=== PATIENT | female | born 1965 | race Two or more races ===

== ENCOUNTER 2021-07-21 12:46 | Outpatient (REF) | payer MEDICARE, SELFPAY | END 2021-07-21 12:47 | disposition home or self-care (01) | LOC: HO.LAB 12:46 | PROVIDERS: Visit Provider Internal Medicine | DX: Z20.822 Contact with and (suspected) exposure to COVID-19 (principal) | CPT/HCPCS: C9803; U0003; U0005 ==

== ENCOUNTER 2025-03-07 10:36 | Outpatient (REF) | payer MEDICARE, SELFPAY ==
--- NOTE | 2025-03-07 10:41 | EMG_ITS ---
Chief complaint: Bilateral hand numbness and pain Reason for referral: Evaluate for Carpal Tunnel Syndrome or ulnar neuropathy Referred by: Félix BROOKS Procedure done: Bilateral upper extremities NCS/EMG Precautions and/or limitations: None The limb temperature was monitored continuously and remained between 32-36 degrees C during the performance of the NCS. Nerve Conduction Studies Anti Sensory Summary Table ?Stim Site NR Onset (ms) Norm Onset (ms) Peak (ms) Norm Peak (ms) O-P Amp (?V) Norm O-P Amp Site1 Site2 Delta-0 (ms) Dist (cm) [place] (m/s) Norm [place] (m/s) Left Median Anti Sensory (2nd Digit) Wrist ? 5.6 6.2 <3.6 3.0 >10 Wrist 2nd Digit 5.6 14.0 25 Right Median Anti Sensory (2nd Digit) Wrist NR <3.6 >10 Wrist 2nd Digit 14.0 Right Radial Anti Sensory (Thumb) Forearm ? 1.8 2.4 <3.1 12.1 Forearm Thumb 1.8 0.0 Left Ulnar Anti Sensory (5th Digit) Wrist ? 1.5 3.5 <3.7 20.4 >15.0 Wrist 5th Digit 1.5 14.0 93 Right Ulnar Anti Sensory (5th Digit) Wrist ? 0.8 3.4 <3.7 16.8 >15.0 Wrist 5th Digit 0.8 14.0 175 Motor Summary Table ?Stim Site NR Onset (ms) Norm Onset (ms) O-P Amp (mV) Norm O-P Amp iAmp (mV) Amp (1st) (%) Site1 Site2 Delta-0 (ms) Dist (cm) [place] (m/s) Norm [place] (m/s) Left Median Motor (Abd Poll Brev) Wrist ? 6.3 <3.9 6.6 >4.5 8.1 100.0 Elbow Wrist 4.1 19.5 48 >45 Elbow ? 10.4 4.9 6.2 74.2 Right Median Motor (Abd Poll Brev) Wrist ? 7.9 <3.9 6.9 >4.5 8.9 100.0 Elbow Wrist 2.8 21.0 75 >45 Elbow ? 10.7 5.9 8.3 85.5 Left Ulnar Motor (Abd Dig Minimi) Wrist ? 3.0 <3.0 6.2 >5 7.7 100.0 B Elbow Wrist 3.4 18.0 53 >45 B Elbow ? 6.4 6.3 7.9 101.6 A Elbow B Elbow 1.7 10.0 59 >45 A Elbow ? 8.1 6.3 8.0 101.6 Right Ulnar Motor (Abd Dig Minimi) Wrist ? 2.7 <3.0 8.4 >5 9.5 100.0 B Elbow Wrist 3.9 19.0 49 >45 B Elbow ? 6.6 8.6 9.7 102.4 A Elbow B Elbow 1.5 10.0 67 >45 A Elbow ? 8.1 8.6 9.7 102.4 EMG ?Side Muscle Nerve Root Ins Act Fibs Psw Amp Dur Poly Recrt Int Pat Comment Right 1stDorInt Ulnar C8-T1 Nml Nml Nml Nml Nml 0 Nml Complete Right FlexCarpiUln Ulnar C8,T1 Nml Nml Nml Nml Nml 0 Nml Complete Right Biceps Musculocut C5-6 Nml Nml Nml Nml Nml 0 Nml Complete Right Triceps Radial C6-7-8 Nml Nml Nml Nml Nml 0 Nml Complete Right Deltoid Axillary C5-6 Nml Nml Nml Nml Nml 0 Nml Complete Left 1stDorInt Ulnar C8-T1 Nml Nml Nml Nml Nml 0 Nml Complete Left FlexCarpiUln Ulnar C8,T1 Nml Nml Nml Nml Nml 0 Nml Complete Left Biceps Musculocut C5-6 Nml Nml Nml Nml Nml 0 Nml Complete Left Triceps Radial C6-7-8 Nml Nml Nml Nml Nml 0 Nml Complete Left Deltoid Axillary C5-6 Nml Nml Nml Nml Nml 0 Nml Complete FINDINGS: Bilateral median motor nerves showed prolonged distal latency, normal amplitude and normal conduction velocity. Right median sensory nerve showed absent response. Left median sensory nerve showed prolonged peak latency and small amplitude. All other nerves tested were within normal. Concentric needle EMG was performed in selected muscles of the bilateral upper extremities. Study did not reveal signs of electric abnormalities as shown in the table above. IMPRESSION: 1. This is an abnormal study. 2. There is electrodiagnostic evidence for bilateral moderate-severe median neuropathy at the wrist, consistent with carpal tunnel syndrome. 3. There is no electrodiagnostic evidence for ulnar neuropathy, brachial plexopathy, or cervical radiculopathy. Thank you for your kind referral. Zuleima Devries MD, CAROLEE Board Certified, [place] [employer] and [employer] (ABPMR) Board Certified, [place] [employer] Electro[employer]ostic [employer] (ABEM) CODIN [phone] MTDD
--- OUTSIDE RECORDS SUMMARY | 2025-03-07 11:25 | XMS_ITS | Patient Health Record ---
[facility] Organization [facility] Address [address] [place] [address] Care Team Providers Care Table Games Dealer Name Role Phone MEHDI PARKER Unavailable [phone] Allergies Allergen (clinical drug ingredient) Drug/Non Drug Allergy documented on EMR Reaction Allergy Type Onset Date Status albuterol albuterol (uncoded) Unknown Allergy Active amoxicillin / clavulanate augmentin (uncoded) Unknown Allergy Active bee sting (uncoded) Unknown Allergy Active influenza (uncoded) Unknown Allergy Active Substance with 2-hazuybz-9-methylgluta ryl-coenzyme A reductase inhibitor mechanism of action (substance) statin (uncoded) Unknown Allergy Active Reason For Referral No Information Medications Medication SIG (Take, Route, Frequency, Duration) Notes Start Date End Date Status Fish Oil 1000 MG 1 capsule Orally Once a day Active Breo Ellipta 100-25 MCG/INH 1 puff Inhalation Once a day; Duration: 30 days 07/10/2020 Active Alpha Lipoic Acid 300mg x2 daily Active Cymbalta 60 MG 1 capsule Orally Once a day; Duration: 90 days Active Magnesium 500 MG 4 tablets with a meal Orally Once a day Active Levothyroxine Sodium 100 MCG 1 tablet in the morning on an empty stomach Orally Once a day; Duration: 30 day(s) 06/14/2020 Active Super B Complex Acti ve Levalbuterol HCl 0.63 MG/3ML 3 ml Inhalation every 8 hrs; Duration: 30 days Active Cymbalta 30 MG 1 capsule Orally in the evening; Duration: 90 days 06/23/2021 Active Probiotic Active Calcium 1000 + D 1000-800 MG-UNIT 1 tablet with a meal Orally Once a day Active EpiPen 2-Leonides 0.3 MG/0.3ML as directed Injection prn; Duration: 30 days Active Vitamin B12 2500mcg sublingual daily Active Xopenex HFA 45 MCG/ACT 1 puff as needed Inhalation every 4 hrs; Duration: 30 days Active Trulicity 1.5 MG/0.5ML as directed Subcutaneous weekly; Duration: 30 days 12/31/2020 Active dilTIAZem HCl 120 MG once Orally daily; Duration: 90 days Active Lisinopril 5 MG 1 tablet Orally Once a day; Duration: 90 days Active Loratadine 10 MG 1 tablet Orally Once a day Active FreeStyle Lite Test - USE ONCE DAILY; Duration: 30 days Active Sunosi 150 MG 1 tablet in the morning Orally Once a day Active SUMAtriptan Succinate 25 MG 1 tablet at least 2 hours between doses as needed Orally Twice a day; Duration: 30 days 08/22/2020 Active Vitamin D3 125 MCG (5000 UT) 1 tablet Orally Once a day Active Flonase Allergy Relief 50 MCG/ACT 1 spray in each nostril Nasally Once a day Active Cymbalta 30 MG 1 capsule Orally Once a day; Duration: 30 day(s) 12/31/2020 Active Social History Tobacco Use: Social History Observation Description Date Details (start date - stop date) Never Smoker NA - NA Tobacco Use/Smoking Question Answer Notes 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 Problems Problem Type SNOMED Code ICD Code Onset Dates Problem Status W/U Status Risk Notes Problem Type II diabetes mellitus without complication (403369052) Type 2 diabetes mellitus without complications (E11.9) Active confirmed Problem Obesity (961044484) Obesity, uns pecified (E66.9) Active confirmed Problem Refractory migraine with aura (331734786) Migraine with aura, intractable, without status migrainosus (G43.119) Active confirmed Problem Neuropathy (462120389) Neuropathy (G62.9) Active confirmed Problem Hyperlipoproteinemia (2732245) Acquired hyperlipoproteinemia (E78.5) Active confirmed Problem Hypothyroidism (37571281) Hypothyroidism, unspecified type (E03.9) Active confirmed Problem Vitamin D deficiency (79938919) Vitamin D deficiency (E55.9) Active confirmed Problem Body mass index 30+ - obesity (342908061) Body mass index [BMI]30.0-30.9, adult (Z68.30) Active confirmed Plan Of Treatment Pending Test Test Name Order Date Hemoglobin A1c 06/14/2020 Hemoglobin A1c 04/19/2020 Insulin, Fasting 04/19/2020 TSH+Free T4 06/14/2020 TSH+Free T4 04/19/2020 Lipid Panel 04/19/2020 Comp. Metabolic Panel (14) 04/19/2020 CBC 04/19/2020 25OH VITAMIN D 04/19/2020 HEMOGLOBIN A1C 12/31/2020 HEMOGLOBIN A1C 09/30/2020 T3, FREE 09/30/2020 T4, FREE 09/30/2020 TSH 09/30/2020 TSH 12/31/2020 LIPID PANEL, STANDARD 07/15/2021 COMPREHENSIVE METABOLIC PANEL 07/15/2021 CBC (INCLUDES DIFF/PLT) 07/15/2021 HEMOGLOBIN A1c 07/15/2021 VITAMIN D,25-OH,TOTAL,IA 07/15/2021 Medical (General) History Medical History History ICD Code benign positional vertigo Surgical History Surgery Date(Month/Year) rectocele repair gallbladder inguinal hernia
--- OUTSIDE RECORDS SUMMARY | 2025-03-07 11:25 | XMS_ITS | Clinical Summary ---
Author Organization [address] [facility] Address [address] [place] [phone] Phone Care Team Providers Care Home Care Administrator Name Role Phone Arash Alba MD Primary Care Provider [phone] Allergies Active Allergy Reactions Criticality Noted Date Comments Amoxicillin-Pot Clavulanate Dizziness,Nausea And Vomiting 10/06/2021 Other Reaction(s): dizziness, vomiting, diarrhea Bee Venom Protein (Honey Bee) 10/06/2021 Covid-19 Vaccine, [id number], Lnp-S (Moderna) Other 10/06/2021 Asthma attack Diltiazem Unknown 10/18/2023 Pt states eruption of lichen planus Ezetimibe Other 10/18/2023 Pt states eruption of lichen planus Influenza Virus Vaccines Unknown 11/30/2023 full systemic reaction - full body joint inflammation per pt Lisinopril Unknown 10/18/2023 Pt states eruption of lichen planus Simvastatin Neuropathy 10/06/2021 Other Reaction(s): ALL STATINS - pain in kidney area, memory lapse Neuropathy Neuropathy Patient states reaction to all STATIN medications Patient states reaction to all STATIN medications Tetracycline Dizziness 10/06/2021 Other Reaction(s): dizziness, vomiting, diarrhea Medications thyroid, pork, (ARMOUR THYROID) 30 mg tablet Take 3 tablets (90 mg total) by mouth 1 (one) time each day. 12/23/19 24 Active dexAMETHasone 0.1 mg/mL solution TAKE 2.5 ML BY MOUTH TWICE A DAY , SWISH AND SPIT OUT. DO NOT SWALLOW. 10/11/19 24 Active clobetasoL (TEMOVATE) 0.05 % topical solution APPLY TO SCALP TWICE A DAY NEEDED 10/05/19 24 Active miscellaneous medical supply misc CPAP HISTORICAL (HISTORICAL CPAP) Inhale into the lungs. Active loratadine 10 mg capsule Take by mouth. Activ e fluticasone propionate (FLONASE NASL) by Nasal route. Active cholecalciferol (VITAMIN D-3) 125 mcg (5,000 unit) capsule Take by mouth. A ctive coenzyme Q10 400 mg capsule Take by mouth. Acti ve naltrexone (DEPADE) 50 mg tablet Take 4.5 mg by mouth 1 (one) time each day. Active palmitoyl pentapeptide-4,b ulk, gel Active s-adenosylmethio nine sul tosyl (SHAINA-E ORAL) Take by mouth. Ac tive levalbuterol (XOPENEX HFA) 45 mcg/actuation inhaler Inhale 2 puffs by mouth every 4 (four) hours if needed for wheezing. 15 g 1 02/22/20 25 Active SUMAtriptan (IMITREX) 25 mg tablet Take 1 tablet (25 mg total) by mouth 1 (one) time if needed for migraine. 9 tablet 1 02/22/20 25 Active EPINEPHrine (EpiPen 2-Leonides) 0.3 mg/0.3 mL injection Inject 0.3 mL (0.3 mg total) into the thigh if needed for anaphylaxis. 1 each 1 02/22/20 25 Active dulaglutide (Trulicity) 1.5 mg/0.5 mL pen injector injectionIndicat ions:Type 2 diabetes mellitus without complication, without long-term current use of insulin ([facility] V24, [facility] V28) Inject 0.5 mL (1.5 mg total) under the skin 1 (one) time per week. 6 mL 02/22/20 25 Active Sunosi 150 mg tablet Take 150 mg by mouth 1 (one) time each day. Max Daily Amount: 150 mg 09/12/19 25 Active levalbuterol (XOPENEX) 0.63 mg/3 mL nebulizer solutionIndicati ons:Type 2 diabetes mellitus without complication, without long-term current use of insulin ([facility] V24, [facility] V28) TAKE 1 VIAL BY NEBULIZATION EVERY 4 HOURS IF NEEDED FOR WHEEZING. 270 mL 1 02/23/20 25 Active levalbuterol (XOPENEX) 0.63 mg/3 mL nebulizer solutionIndicati ons:Mild intermittent asthma, uncomplicated Take 3 mL by nebulization every 4 (four) hours if needed for wheezing. 72 mL 1 02/23/20 25 Active ammonium lactate (AMLACTIN) 12 % cream Apply topically if needed for dry skin (nightly). 560 g 03/01/20 25 026 Active SUMAtriptan (IMITREX) 25 mg tablet Take 1 tablet (25 mg total) by mouth. 02/01/20 24 025 Discontin ued(Reord er) tacrolimus (PROTOPIC) 0.1 % ointment APPLY TO FACE, ARMS, TRUNK, AND LEGS TWICE A DAY , ALTERNATING WITH TOPICAL STEROIDS 10/14/19 24 025 Discontin ued(Disco ntinued by another clinician ) betamethasone, augmented, (DIPROLENE) 0.05 % ointment APPLY TO TRUNK, ARMS, LEGS TWICE A DAY NEEDED FOR FLARES 10/01/19 24 025 Discontin ued(Disco ntinued by another clinician ) levalbuterol (XOPENEX) 0.63 mg/3 mL nebulizer solution Take 1 Ampule by nebulization every 4 hours as needed for Wheezing, Shortness of Breath or Cough. 05/07/20 23 025 Discontin ued(Reord er) EPINEPHrine (EpiPen 2-Leonides) 0.3 mg/0.3 mL injection Inject 0.3 mg into the muscle as needed for Other (anaphylactic reaction). 2-pack. Fill with whichever brand is covered by insurance. 07/21/20 23 025 Discontin ued(Reord er) levalbuterol (XOPENEX HFA) 45 mcg/actuation inhaler INHALE 1-2 PUFFS INTO THE LUNGS EVERY 4 HOURS NEEDED FOR WHEEZING. 07/27/19 24 025 Discontin ued(Reord er) Trulicity 1.5 mg/0.5 mL pen injector injectionIndicat ions:Type 2 diabetes mellitus without complication, without long-term current use of insulin ([facility] V24, CMS/HCC V28) INJECT 1 PEN SUBCUTANEOUSLY ONE TIME PER WEEK 6 mL 12/07/19 25 025 Discontin ued(Reord er) levalbuterol (XOPENEX) 0.63 mg/3 mL nebulizer solutionIndicati ons:Type 2 diabetes mellitus without complication, without long-term current use of insulin ([facility] V24, [facility] V28) Take 3 mL by nebulization every 4 (four) hours if needed for wheezing. 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 COVID 11/19/2021 Overview (04/19/2024): Covid positive 04/12/23 Allergic rhinitis due to pollen 10/06/2021 Chronic back pain 10/06/2021 History of suicide attempt 10/06/2021 Overview (04/19/2024): 2017, partial hospitalization program Hypothyroidism 10/06/2021 Major depression 10/06/2021 Migraine 10/06/2021 Mild intermittent asthma, uncomplicated 10/07/19 Narcolepsy 10/06/2021 Sleep apnea 10/06/2021 Small fiber neuropathy 10/06/2021 Sphincter of Oddi dysfunction 10/06/2021 Type 2 diabetes mellitus wit hout complications ([facility] V24, [facility] V28) 10/06/2021 Diverticulosis 05/23/2020 Overview (04/19/2024): Mark diverticulosis. Encounters Date Type Department Care Team Description 03/01/2025 1:15 PM EDT Consult Orthopedic Surgery - [address] [phone] Alexandre Rivera, DPM Dermatofibroma of right lower leg (Primary Dx); Type 2 diabetes mellitus without complication, unspecified whether vermin exterminator insulin use ([facility] V24, [facility] V28); Acquired hammer toe of right foot; Hammer toe of left foot; Acquired hallux valgus of left foot; Acquired hallux valgus of right foot 02/21/2025 9:45 AM EDT Office Visit Internal Medicine - [address] [phone] Arash Alba MD Type 2 diabetes mellitus without complication, without long-term current use of insulin ([facility] V24, [facility] V28) (Primary Dx); Migraine without aura and without status migrainosus, not intractable; Recurrent major depressive disorder, in full remission ([facility] V24); Mild intermittent asthma, uncomplicated; Lichen planus; Dysuria 02/05/2025 9:00 AM EDT Consult Orthopedic Surgery - [address] [phone] Félix Xiong PA Carpal tunnel syndrome, right (Primary Dx); Carpal tunnel syndrome of right wrist; Left carpal tunnel syndrome; Cubital tunnel syndrome on right; Acquired trigger finger of left index finger 01/12/2025 9:45 AM EDT Office Visit Internal Medicine - [address] [phone] Michelet Barrios PA Carpal tunnel syndrome of right wrist (Primary Dx) 12/19/2024 Telephone Internal Medicine - [address] [phone] Arash Alba MD Referral (Internal / Podiatry) 12/13/2024 Telephone Pediatrics - [address] [phone] Arash Alba MD Referral (gastroenterology) from Last 3 Months Immunizations Name Administration Dates Next Due Pneumococcal polysaccharide 23 valent (Pneumovax 23) 2yo and older 06/15/2017,01/07/2015 Tdap Tetanus diptheria acell ular pertussis (Boostrix; Adacel) 7yo and older 03/07/2019 Surgical History Surgery Date Site/Laterality Comments HYSTERECTOMY 2017 PROCEDURE: HISTORICAL HYSTERECTOMY; COMMENT: for rectocele, cystocele. Cervix in place OTHER SURGICAL HISTORY 2006 Left PROCEDURE: AR RPR RECRT INGUINAL HERNIA ANY AGE REDUCIBLE COLONOSCOPY 05/23/2020 PROCEDURE: HISTORICAL COLONOSCOPY; COMMENT: Mark BREAST BIOPSY 2003 Right PROCEDURE: BX BREAST; PERC NEEDLE CORE W/IMAG GUID Medical History Medical History Date Comments Narcolepsy DX:Narcolepsy Sleep apnea DX:Sleep apnea Type 2 diabetes mellitus wit hout complications (CMS/HCC V24, CMS/HCC V28) DX:Type 2 diabetes mellitus without complications ([facility]) Hypothyroidism DX:Hypothyroidis m Mild intermittent asthma, uncomplicated DX:Mild intermittent asthma, uncomplicated Sphincter of Oddi dysfunction DX :Sphincter of Oddi dysfunction Migraine DX:Migraine Small fiber neuropathy DX:Small fiber neuropathy Allergic rhinitis due to pollen DX:Allergic rhinitis due to pollen Chronic back pain DX:Chronic edwige k pain Major depression DX:Major depres huang History of suicide attempt DX:Ri story of suicide attempt; COMMENT: 2017, partial hospitalization program Diverticulosis 05/23/2020 DX:Diverticulosi s; COMMENT: Mark, diverticulosis. Family History Medical History Relation Name Comments Colon cancer Aunt 1 Maternal Lymphoma Aunt 2 Maternal Coronary artery disease Father Thyroid disease Father Diabetes Maternal Grandmother Breast cancer Mother Relation Name Status Comments Aunt 1 Maternal Alive Aunt 2 Maternal Alive Father Maternal Grandmother Mother Social History Tobacco Use Types Packs/Day Years Used Date Smoking Tobacco: Never Smokeless Tobacco: Never Tobacco Cessation:Counseling Given: Not Answered Alcohol Use Standard Drinks/Week Comments Never 0 (1 standard drink = 0.6 oz pur e alcohol) Housing Instability Answer Date Recorde d Are you worried that in the next 2 months you may not have stable housing? No 08/18/2024 Food Access & Nutrition Answer Date Rec orded Do you have access to a vari ety of food including fruits and vegetables? Yes 08/18/2024 Access to Healthcare Answer Date Record ed Within the last 3 months, ho w many times did you visit the emergency department for your medical care? 0 08/18/2024 Health Literacy Answer Date Recorded How often do you need to hav e someone help you when you read instructions, pamphlets, or other written material from your doctor or pharmacy? Never 08/18/2024 Caregiver: How often do you need to have someone help you when you read instructions, pamphlets, or other written material from your doctor or pharmacy? Not on file 08/18/2024 Financial Risk Answer Date Recorded How hard is it for you to pa y for the very basics like food, housing, medical care, and air conditioning / heating? Not very hard 08/18/2024 Transportation Answer Date Recorded Has the lack of transportati on kept you from meetings, work, or from getting things needed for daily living? No Has the lack of transportati on kept you from medical appointments or from getting medications? No 08/18/2024 Social Isolation Answer Date Recorded How often do you feel lonely or isolated from th ose around you? Rarely 08/18/2024 Food Risk Answer Date Recorded Within the past 12 months we worried whether our food would run out before we got money to buy more. Never true 08/18/2024 Within the past 12 months th e food we bought just didn't last and we didn't have money to get more. Never true 08/18/2024 Dependent Care Answer Date Recorded Do you need help finding or paying for care for your loved ones. For example, school childcare attendant or elderly care for an older adult? No 08/18/2024 Education Answer Date Recorded Do you think completing more education or training, like finishing a GED, going to college, or learning a trade, would be helpful for you? No 08/18/2024 Employment and Income Answer Date Recor ded During the last four weeks, have you been actively looking for work? No 08/18/2024 Living Situation Answer Date Recorded What is your living situation? 0 08/18/2024 Comments No Sex and Gender Information Value Date Recorded Sex Assigned at Not on file Legal Sex Female 8:43 PM EST Gender Identity Not on file Sexual Orientation Not on file Obstetrics History Para Term AB IAB SAB Ectopic Multiple Livin g Live Births 1 Date Outcome GA Total Labor Labor/2nd/3rd Weight Sex Type Anes PTL Ne A1 A5 Name Clin Term Last Filed Vital Signs Vital Sign Reading Time Taken Comments Blood Pressure 139/85 02/21/2025 10:03 AM EDT Pulse 63 02/21/2025 9:45 AM EDT Temperature - - Respiratory Rate - - Oxygen Saturation - - Inhaled Oxygen Concentration - - Weight 72.4 kg (159 lb 11.2 oz) 02/21/2025 9:45 AM EDT Height 162.6 cm (5' 4 ) 02/21/2025 9:45 AM EDT Body Mass Index 27.41 02/21/2025 9:45 AM EDT Plan of Treatment Upcoming Encounters Date Type Department Care Team (Late st Contact Info) Description 04/09/2025 11:00 AM EDT Office Visit Orthopedic Surgery [place] [phone] [phone] Alexandre Rivera DPM [address] [address] 05/08/2025 9:00 AM EDT Office Visit Orthopedic Surgery [place] [address] [phone] Félix Xiong PA [address] [phone] 05/24/2025 8:30 AM EDT Appointment [facility] Endoscopy [address] [place] [phone] Beti Flores MD [address] [facility] [address] [place] [address] 08/24/2025 9:00 AM EST Office Visit Internal Medicine - [facility] [address] [place] [phone] Arash Alba MD [address] [place] [address] Health Maintenance Due Date Last Done Comments Diabetes: Annual Foot Exam 1975 Pneumococcal Vaccine: 50+ Years (2 of 2 - PCV) 06/15/2018 06/15/2017, 01/07/2015 Medicare Annual Wellness Visit 07/05/2022 Diabetes: Annual Urine Albumin-Creatinine Ratio (uACR) 10/17/2024 10/18/2023 Colorectal Cancer Screening: Colonoscopy 05/23/2025 05/23/2020 Social Influencers of Health Screening 08/18/2025 08/18/2024 Diabetes: Blood Sugar Contro l Test (HGBA1C) 08/24/2025 02/21/2025, 10/18/2023 RSV Immunization Adult Patients (1 - Risk 60-74 years 1-dose series) 08/24/2025 Postponed from 2023 (Patient Refused) Diabetes: Annual Retina Eye Exam 10/13/2025 10/13/2024 Diabetes: Annual GFR (Glomerular Filtration Rate) 02/21/2026 02/21/2025, 09/26/2024, 10/18/2023 Hypertension/CHF/CAD Annual BMP Blood Test 02/21/2026 02/21/2025, 09/26/2024, 10/18/2023 Breast Cancer Screening 11/23/2026 11/24/19, 11/13/2023 DTaP,Tdap,and Td Vaccines (2 - Td or Tdap) 03/07/2029 03/07/2019 Cholesterol Screening (Lipid Panel) 09/26/2029 09/26/2024, 03/05/2023 COVID-19 Vaccine Discontinued 10/22/2020, 09/24/2020 Hepatitis C Screening Completed 02/19/2023 Depression Screening Completed 08/18/2024 Cervical Cancer Screening: Pap Smear Discontinued HIB Vaccines Aged Out No longer eligi ble based on patient's age to complete this topic HIV Screening Discontinued HPV Vaccines Aged Out No longer eligi ble based on patient's age to complete this topic Hepatitis A Vaccines Aged Out No long er eligible based on patient's age to complete this topic Hepatitis B Vaccines Aged Out No long er eligible based on patient's age to complete this topic IPV Vaccines Aged Out No longer eligi ble based on patient's age to complete this topic Influenza Vaccine Discontinued MMR Vaccines Aged Out No longer eligi ble based on patient's age to complete this topic Meningococcal ACWY Vaccine Aged Out N o longer eligible based on patient's age to complete this topic Meningococcal B Vaccine Aged Out No l onger eligible based on patient's age to complete this topic RSV Immunization Patients Under 20 months Aged Out No longer eligible b ased on patient's age to complete this topic Varicella Vaccines Aged Out No longer eligible based on patient's age to complete this topic Zoster Vaccines Discontinued Procedures Procedure Name Priority Date/Time Associated Diagnosis Comments TELLEZ URINE CULTURE TUBE Routine 02/21/2025 10:33 AM EDT Dysuria URINALYSIS WITH REFLEX MICROSCOPIC AND CULTURE Routine 02/21/2025 10:31 AM EDT Dysuria HEMOGLOBIN A1C Routine 02/21/2025 10:31 AM EDT Type 2 diabetes mellitus without complication, without long-term current use of insulin ([facility] V24, [facility] V28) COMPREHENSIVE METABOLIC PANEL Routine 02/21/2025 10:31 AM EDT Type 2 diabetes mellitus without complication, without long-term current use of insulin ([facility] V24, [facility] V28) URINALYSIS WITH REFLEX MICROSCOPIC AND CULTURE Routine 02/21/2025 10:31 AM EDT Dysuria AR INJECTION SINGLE TENDON SHEATH OR LIGAMENT APONEUROSIS Routine 02/05/2025 9:00 AM EDT Acquired trigger finger of left index finger MG MAMMO DIGITAL SCREENING W WALLACE BILAT Routine 11/23/2024 1:13 PM EDT Encounter for screening mammogram for breast cancer EXTERNAL DIABETIC RETINA EYE EXAM 10/13/2024 LIPID PANEL WITH REFLEX TO DIRECT LDL Routine 09/26/2024 9:23 AM EST Type 2 diabetes mellitus without complication, without long-term current use of insulin ([facility] V24, [facility] V28) Mixed hyperlipidemia HM URINE ALBUMIN CREATININE RATIO Routine 10/18/2023 HM HEPATITIS C SCREENING Routine 02/19/2023 COLONOSCOPY Routine 05/23/2020 from Last 3 Months or Most Recently Relevant to Health Maintenance Results * Tellez urine culture tube (02/21/2025 10:33 AM EDT) [facility] Extra Tube Hold for add-ons. 02/21/2025 4:01 PM [facility] Comment:Auto resulted. Urine Urine specimen obtained by clean catch procedure / Unknown Non-blood Collection / Unknown 02/21/2025 10:33 AM EDT 02/21/2025 10:33 AM EDT us Arash Alba MD LAB URINE ORDERABLES Final Resu lt [facility] [address] [place] [address], [place] [phone] * (ABNORMAL) Urinalysis with reflex microscopic and culture (02/21/2025 10:31 AM EDT) [facility] Specific Mercedes Urine 1.032(H) 1.003 - 1.030 LAB URINALYSIS - AUTOMATED METHOD 02/21/2025 2:02 PM [facility] pH, Urine 6.0 5.0 - 8.0 pH LAB URINALYSIS - AUTOMATED METHOD 02/21/2025 2:02 PM [facility] Leukocytes, Urine Negative Negative LAB URINALYSIS - AUTOMATED METHOD 02/21/2025 2:02 PM [facility] Nitrite, Urine Negative Negative LAB URINALYSIS - AUTOMATED METHOD 02/21/2025 2:02 PM [facility] Protein, Urine Trace <=Trace mg/dL LAB URINALYSIS - AUTOMATED METHOD 02/21/2025 2:02 PM [facility] Glucose, Urine Negative Negative mg/dL LAB URINALYSIS - AUTOMATED METHOD 02/21/2025 2:02 PM [facility] Ketones, Urine Trace(A) Negative mg/dL LAB URINALYSIS - AUTOMATED METHOD 02/21/2025 2:02 PM EDT [facility] Urobilinogen, Urine 1.0 0.2 - 1.0 mg/dL LAB URINALYSIS - AUTOMATED METHOD 02/21/2025 2:02 PM EDT [facility] Bilirubin, Urine Negative Negative LAB URINALYSIS - AUTOMATED METHOD 02/21/2025 2:02 PM EDT [facility] Blood, Urine Negative Negative LAB URINALYSIS - AUTOMATED METHOD 02/21/2025 2:02 PM EDT [facility] Urine Urine specimen obtained by clean catch procedure / Unknown Non-blood Collection / Unknown 02/21/2025 10:31 AM EDT 02/21/2025 10:33 AM EDT us Arash Alba MD LAB URINE ORDERABLES Final Resu lt Performing Organization Address City/[facility]/ZIP Co de Phone Number [facility] [address] [place] [address], [place] [phone] * Hemoglobin A1c (02/21/2025 10:31 AM EDT) Hemoglobin A1C 6.3 <6.5 % LAB CHEMISTRY METHOD 02/21/2025 6:32 PM EDT [facility] Mean Bld Glu Estim. 134 mg/dL LAB CHEMISTRY METHOD 02/21/2025 6:32 PM EDT [facility] Blood Venous blood specimen / Unknown Venipuncture / Unknown 02/21/2025 10:31 AM EDT 02/21/2025 10:33 AM EDT us Arash Alba MD LAB BLOOD ORDERABLES Final Resu lt [facility] [address] [place] [address], [place] [phone] * Comprehensive metabolic panel (02/21/2025 10:31 AM EDT) Sodium 139 133 - 145 mmol/L LAB CHEMISTRY METHOD 02/21/2025 2:23 PM [facility] Potassium 4.2 3.5 - 5.5 mmol/L LAB CHEMISTRY METHOD 02/21/2025 2:23 PM [facility] Chloride 108 96 - 110 mmol/L LAB CHEMISTRY METHOD 02/21/2025 2:23 PM [facility] CO2 27 21 - 32 mmol/L LAB CHEMISTRY METHOD 02/21/2025 2:23 PM [facility] Anion Gap 4 3 - 11 LAB CHEMISTRY METHOD 02/21/2025 2:23 PM [facility] Glucose 92 70 - 100 mg/dL LAB CHEMISTRY METHOD 02/21/2025 2:23 PM [facility] BUN 13 5 - 25 mg/dL LAB CHEMISTRY METHOD 02/21/2025 2:23 PM [facility] Creatinine 0.69 0.50 - 1.10 mg/dL LAB CHEMISTRY METHOD 02/21/2025 2:23 PM [facility] eGFR 99 >=60 mL/min/1. 73m2 LAB CHEMISTRY METHOD 02/21/2025 2:23 PM [facility] Comment:Calculation based on the Chronic Kidney Disease Epidemiology Collaboration (CKD-EPI) equation refit without adjustment for race. BUN/Creatinine Ratio 18.8 LAB CHEMISTRY METHOD 02/21/2025 2:23 PM [facility] Calcium 8.7 8.5 - 10.5 mg/dL LAB CHEMISTRY METHOD 02/21/2025 2:23 PM [facility] AST (SGOT) 19 10 - 42 unit/L LAB CHEMISTRY METHOD 02/21/2025 2:23 PM [facility] ALT (SGPT) 42 10 - 60 unit/L LAB CHEMISTRY METHOD 02/21/2025 2:23 PM [facility] Alkaline Phosphatase 111 42 - 121 unit/L LAB CHEMISTRY METHOD 02/21/2025 2:23 PM EDT [facility] Total Protein 6.4 6.0 - 8.0 g/dL LAB CHEMISTRY METHOD 02/21/2025 2:23 PM EDT [facility] Albumin 3.8 3.2 - 5.0 g/dL LAB CHEMISTRY METHOD 02/21/2025 2:23 PM EDT [facility] Total Bilirubin 0.5 0.0 - 1.4 mg/dL LAB CHEMISTRY METHOD 02/21/2025 2:23 PM EDT [facility] Blood Venous blood specimen / Unknown Venipuncture / Unknown 02/21/2025 10:31 AM EDT 02/21/2025 10:33 AM EDT us Arash Alba MD LAB BLOOD ORDERABLES Final Resu lt [facility] [address] [place] [address], [place] [phone] * AR INJECTION SINGLE TENDON SHEATH OR LIGAMENT APONEUROSIS (02/05/2025 9:00 AM EDT) Narrative Félix Xiong PA - 02/05/2025 9:00 AM EDT CECILIA Mead 02/05/2025 9:59 AM Hand / UE Inj/Asp: L index A1 for trigger finger Indications: pain Details: 27 G needle, volar approach Medications: 40 mg triamcinolone acetonide 40 mg/mL Outcome: tolerated well, no immediate complications Site was prepped in standard fashion using alcohol swab, sterile technique was used to perform the injection, the patient tolerated the procedure well and a band-aid dressing was applied Informed Consent: Laterality: Left Relevant images/test results available and reviewed: yes Health status cleared: Yes Procedure/treatment, purpose, treatment alternatives, risks/potential complications and benefits explained: yes Risk/complications/benefits details: Risk/complications/benefits details: Risks and benefits of corticosteroid injection were discussed, including risk of pain, bleeding, infection, tissue attenuation, tendon rupture, changes in skin color, and injury to surrounding structures such as arteries, veins and nerves. We also discussed the patient may develop worsening pain for a few days before having improvement in their symptoms. Patient questions answered: yes Patient agrees, verbalizes understanding, and wants to proceed: yes Consent given by: Patient Informed consent discussion completed by Physician/KATHRYN with patient: Verbal Pre-procedure timeout performed: yes Félix BROOKS IN CLINIC/BEDSIDE ORDERABLES Fi nal Result * MG Mammo Digital Screening w Wallace bilat (11/23/2024 1:13 PM EDT) Anatomical Region Laterality Modality Breast Bilateral Mammography 11/24/2024 9:08 AM EDT Impressions 11/24/2024 9:11 AM EDT No mammographic evidence of malignancy. BI-RADS CATEGORY: 1 - NEGATIVE RECOMMENDATION: Screening bilateral mammogram is recommended in 1 year. Mammo Location: [facility], [address] [place] [address], [id number], . -------- FINAL REPORT -------- Dictated By: Sofia White Dictated Date: 11/24/2024 09:08 ET Assigned Physician: Sofia White Reviewed and Electronically Signed By: Sofia White Signed Date: 11/24/2024 09:11 ET Workstation ID: [id number] Transcribed By: Self Edit Transcribed Date: 11/24/2024 09:08 ET Narrative 11/24/2024 9:11 AM EDT Bilateral screening mammogram. CLINICAL: 59 years old, Female, routine annual exam. COMPARISON: Prior studies, latest from 11/13/2023. TECHNIQUE: Bilateral MLO and CC views were obtained digitally with 2D C views and 3-D mammogram (digital breast tomosynthesis). Computer-aided detection was utilized in evaluation of this exam (CAD). FINDINGS: There is no evidence of suspicious mass or architectural distortion. No worrisome calcifications are evident. There has been no significant change from prior exam(s). BREAST DENSITY: B - There are scattered areas of fibroglandular density. Procedure Note Sofia White MD - 11/24/2024 Bilateral screening mammogram. CLINICAL: 59 years old, Female, routine annual exam. COMPARISON: Prior studies, latest from 11/13/2023. TECHNIQUE: Bilateral MLO and CC views were obtained digitally with 2D Cviews and 3-D mammogram (digital breast tomosynthesis). Computer-aideddetection was utilized in evaluation of this exam (CAD). FINDINGS: There is no evidence of suspicious mass or architectural distortion. Noworrisome calcifications are evident. There has been no significantchange from prior exam(s). BREAST DENSITY: B - There are scattered areas of fibroglandular density. IMPRESSION: No mammographic evidence of malignancy. BI-RADS CATEGORY: 1 - NEGATIVE RECOMMENDATION: Screening bilateral mammogram is recommended in 1 year. Mammo Location: [facility], [address] [place] [address], [id number], . -------- FINAL REPORT -------- Dictated By: Sofia White Dictated Date: 11/24/2024 09:08 ET Assigned Physician: Sofia White Reviewed and Electronically Signed By: Sofia White Signed Date: 11/24/2024 09:11 ET Workstation ID: [id number] Transcribed By: Self Edit Transcribed Date: 11/24/2024 09:08 ET us Arash Alba MD IMG BI PROCEDURES Final Result * External Diabetic Retina Eye Exam Report (10/13/2024) Anatomical Region Laterality Modality Ultrasound us Provider [facility] US PROCEDURES Final Result * (ABNORMAL) Lipid panel with reflex to direct LDL (09/26/2024 9:23 AM EST) Cholesterol 202(H) 0 - 200 mg/dL LAB CHEMISTRY METHOD 09/26/2024 1:24 PM EST [facility] Triglycerides 155(H) 0 - 150 mg/dL LAB CHEMISTRY METHOD 09/26/2024 1:24 PM EST [facility] HDL 41 >=40 mg/dL LAB CHEMISTRY METHOD 09/26/2024 1:24 PM EST [facility] LDL Calculated 130(H) 0 - 100 mg/dL LAB CHEMISTRY METHOD 09/26/2024 1:24 PM EST [facility] VLDL Cholesterol Lawrence 31 mg/dL LAB CHEMISTRY METHOD 09/26/2024 1:24 PM EST [facility] Non HDL Chol. (LDL+VLDL) 161(H) <145 mg/dL LAB CHEMISTRY METHOD 09/26/2024 1:24 PM EST [facility] Chol/HDL Ratio 4.9(H) 0.0 - 4.4 LAB CHEMISTRY METHOD 09/26/2024 1:24 PM [facility] Blood Venous blood specimen / Unknown Venipuncture / Unknown 09/26/2024 9:23 AM EST 09/26/2024 9:23 AM EST Arash Alba MD LAB BLOOD ORDERABLES Final Resu lt [facility] [address] [place] [address], * Urine Albumin Creatinine Ratio (10/18/2023) Pathologist [facility] Urine Albumin Creatinine Ratio abstracted Historical Provider HEALTH MAINTENANCE Final Result * Hepatitis C Screening (02/19/2023) Pathologist [facility] Hepatitis C Screening abstracted Historical Provider HEALTH MAINTENANCE Final Result * Colonoscopy (05/23/2020) [facility] Colonoscopy completed Anatomical Region Laterality Modality Other Historical Provider HEALTH MAINTENANCE Final Result from Last 3 Months or Most Recently Relevant to Health [place] [address] [employer] MED[employer]ARE [employer] Care Teams Home Care Administrator Relationship Specialty Start Date End Date Arash Alba MD [address] [place] [id number] PCP - General Internal Medicine 06/23/21
--- OUTSIDE RECORDS SUMMARY | 2025-03-07 11:25 | XMS_ITS ---
Author Name [facility] Organization Unknown Care Team Organization Name Specialty Phone Email Start Date End Da te [facility] Arash Alba Primary Care 06/02/20222023
--- OUTSIDE RECORDS SUMMARY | 2025-03-07 11:25 | XMS_ITS | Referral Summary ---
Author Organization [facility] Address [address] [place] [address] Care Team Providers Care Junior Sales Assistant Name Role Phone Arash Alba MD Primary Care Provider [phone] Allergies Active Allergy Reactions Criticality Noted Date Comments Albuterol Other (see comments) 11/30/2023 cardiac arrythmia per pt Amoxicillin-Pot Clavulanate Dizziness,Nausea And Vomiting 10/06/2021 Bee Venom Protein (Honey Bee) Anaphylaxis High 10/06/2021 Covid-19 Vaccine, [id number], Lnp-S (Moderna) Other (see comments) 10/06/2021 Asthma attack Diltiazem Unknown 10/18/2023 Pt states eruption of lichen planus Egg Other (see comments) 11/30/2023 Lichen planus flare per pt Empagliflozin Yeast infection 11/30/2023 Ezetimibe Other (see comments) 10/18/2023 Pt states eruption of lichen planus Influenza Virus Vaccines Unknown 11/30/2023 full systemic reaction - full body joint inflammation per pt Lisinopril Unknown 10/18/2023 Pt states eruption of lichen planus [place] Other (see comments) 11/30/2023 Blisters on lip & throat feels funny [place] fruits also-sets off Asthma per pt Metformin Other (see comments) 11/30/2023 kidney issues, flank pain, joint pain per pt Peanut Other (see comments) 11/30/2023 Blisters around mouth & Asthma Saxagliptin Other (see comments) 11/30/2023 kidney issues, flank pain per pt Shellfish Containing Products Unknown 11/30/2023 Simvastatin Neuropathy 10/06/2021 Neuropathy Patient states reaction to all STATIN medications Soy Unknown 11/30/2023 reacted on skin test Tetracycline Dizziness 10/06/2021 Wheat Dermatitis 11/30/2023 Internal inflammation per pt Medications thyroid (ARMOUR THYROID) 60 mg tablet Take 1 tablet by mouth once a day. Active EpiPen 2-Leonides 0.3 mg/0.3 mL injection syringe Inject 0.3 mg into the shoulder, thigh, or buttocks muscle as directed. 3 Active betamethasone, augmented, (DIPROLENE) 0.05% ointment APPLY TO TRUNK, ARMS, LEGS TWICE A DAY NEEDED FOR FLARES 4 Active tacrolimus (PROTOPIC) 0.1 % ointment APPLY TO FACE, ARMS, TRUNK, AND LEGS TWICE A DAY , ALTERNATING WITH TOPICAL STEROIDS Active Sunosi 150 mg tablet SMARTSI.5 Tablet(s) By Mouth 1-2 Times Daily 4 Active Trulicity 0.75 mg/0.5 mL injection dose SMARTSI.75 Milligram(s) SUB-Q Once a Week 4 Active cholecalciferol , vitamin D3, 125 mcg (5,000 unit) capsule Take by mouth. A ctive clobetasoL (TEMOVATE) 0.05 % external solution APPLY TO SCALP TWICE A DAY NEEDED 4 Active dexAMETHasone 0.5 mg/5 mL solution [address] (CYMBALTA) 30 mg capsule Take 30 mg by mouth. 4 Active hydrOXYzine HCL (ATARAX) 25 mg tablet SMARTSI-2 Tablet(s) By Mouth Every Night PRN Active griseofulvin (GRIFULVIN V) 500 mg tablet TAKE 1 TABLET BY MOUTH TWICE A DAY WITH FATTY FOODS 4 Active levalbuterol (XOPENEX HFA) 45 mcg/actuation inhaler SMARTSI-2 Puff(s) Via Inhaler Every 4 Hours PRN 4 Active levalbuterol (XOPENEX) 0.63 mg/3 mL nebulizer solution Inhale 0.63 mg by mouth. 3 Active MAGNESIUM ORAL Take 150 mg by mouth 2 (two) times a day. Active quercetin 500 mg capsule Take 500 mg by mouth once a day. Active Active Problems No known active problems Social History Tobacco Use Types Packs/Day Years Used Date Smoking Tobacco: Never Assessed Comments Unknown Sex and Gender Information Value Date Recorded Sex Assigned at Female 11/30/2023 3:28 PM EDT Legal Sex Female 1:38 PM EDT Gender Identity Not on file Sexual Orientation Not on file Plan of Treatment Not on file Insurance AETNA [facility] Care Teams Junior Sales Assistant Relationship Specialty Start Date End Date Arash Alba MD [address] [place] [id number] PCP - General 11/30/23
--- OUTSIDE RECORDS SUMMARY | 2025-03-07 11:25 | XMS_ITS | Clinical Summary ---
Author Organization [facility] Address [address] [place] [id number] Phone Care Team Providers Care Accountant Helper Name Role Phone Arash Alba MD Primary Care Provider [phone] Social History Tobacco Use Types Packs/Day Years Used Date Smoking Tobacco: Never Assessed Education Answer Date Recorded Are you interested in more education? Not on mela e 03/22/2024 Are you concerned about learning? Not on file 03/22/2024 No 03/22/2024 No 03/22/2024 Digital Access Answer Date Recorded No 03/22/2024 No 03/22/2024 Reliable internet access at home? Not on file 03/22/2024 Device with a working camera? Not on file Comments Unknown Sex and Gender Information Value Date Recorded Sex Assigned at Not on file Legal Sex Female 6:49 PM EST Gender Identity Not on file Sexual Orientation Not on file Plan of Treatment Not on file Medical Devices Not on file Insurance [employer] PPO MEDICARE REPLACEMENT A[employer] PPO MEDICARE REPLACEMENT [employer] PPO MEDICARE REPLACEMENT [employer] PPO MEDICARE REPLACEMENT [employer] PPO MEDICARE REPLACEMENT [employer] PPO MEDICARE REPLACEMENT Care Teams Accountant Helper Relationship Specialty [place] [address] [place] [address] PCP - General Nephrology 03/22/24 Additional Source Comments The information contained in this document represents components of the legal health record. It is not the complete legal health record.[facility]
== END 2025-03-07 10:37 | disposition home or self-care (01) ==
LOC: HO.NEURO 10:36
DX: G56.03 Carpal tunnel syndrome, bilateral upper limbs (principal)
CPT/HCPCS: 95886; 95911

== ENCOUNTER → 2025-03-07 10:41 | Outpatient (BNV) | payer MEDICARE, SELFPAY | PROVIDERS: Visit Provider Physical Medicine & Rehabilitation | DX: G56.03 Carpal tunnel syndrome, bilateral upper limbs (principal) | CPT/HCPCS: 95886; 95911 ==

== ENCOUNTER 2025-07-13 11:30 | Outpatient (RCR) | payer MEDICARE, SELFPAY | END 2025-07-13 16:47 | disposition home or self-care (01) | LOC: HO.WCC 11:30 | PROVIDERS: PCP Internal Medicine; Visit Provider Surgery Vascular Surgery | DX: E11.622 Type 2 diabetes mellitus with other skin ulcer (principal); S80.819A Abrasion, unspecified lower leg, initial encounter; L43.8 Other lichen planus; E11.42 Type 2 diabetes mellitus with diabetic polyneuropathy; I10 Essential (primary) hypertension; I73.00 Raynaud's syndrome without gangrene; Z79.84 Long term (current) use of oral hypoglycemic drugs; Z79.85 Long-term (current) use of injectable non-insulin antidiabetic drugs | CPT/HCPCS: 99211; 99213; 99215 ==